=== PATIENT | male | born 1990 | race American Indian/Alaskan Native ===

== ENCOUNTER 2021-04-20 00:53 | Emergency (ER) | payer SELFPAY ==
[2021-04-20 02:18] VITALS: BP 121/64
--- NOTE | 2021-04-20 04:02 | Emergency Department Report ---
ED General Adult HPI - General Chief complaint: Medical Clearance Stated complaint: NEED MEDS Source: patient Mode of arrival: Ambulatory Limitations: No Limitations - History of Present Illness Initial comments: Patient is a 30-year-old -[place] male with a history of asthma and paranoid schizophrenia who presents to the ED for medication refill for his chronic schizophrenia which he states he only remains with 1 day supply. Patient states that he recently moved from [facility] and has not established care with a psychiatrist locally and is scheduled to be evaluated by one psychiatrist in 2 weeks but states that he would like to have a refill of his olanzapine medications for his chronic schizophrenia. Patient denies suicidal or homicidal ideation, hallucinations, chest pain or shortness of breath, nausea, vomiting, dizziness, syncope, fever, chills, headache or seizures. MD Complaint: Medication refill -: Sudden, days(s) (2) Location: head Radiation: non-radiation Severity scale (0 -10): 0 Improves with: none Worsens with: none Associated Symptoms: denies other symptoms. denies: confusion, chest pain, cough, diaphoresis, fever/chills, headaches, loss of appetite, malaise, nausea/vomiting, rash, seizure, shortness of breath, syncope, weakness Treatments Prior to Arrival: none - Related Data Previous Rx's Medication Instructions Recorded Last Taken Type OLANZapine [Olanzapine] 10 mg PO DAILY #30 tablet 04/20/21 Unknown Rx Allergies Allergy/AdvReac Type Severity Reaction Status Date / Time No Known Allergies Allergy Unverified 04/20/21 02:16 ED Review of Systems ROS: Stated complaint: NEED MEDS Other details as noted in HPI Constitutional: denies: chills, fever Eyes: denies: eye pain, eye discharge, vision change ENT: denies: ear pain, throat pain Respiratory: denies: cough, shortness of breath, wheezing Cardiovascular: denies: chest pain, palpitations Endocrine: no symptoms reported Gastrointestinal: denies: abdominal pain, nausea, diarrhea Genitourinary: denies: urgency, dysuria Musculoskeletal: denies: back pain, joint swelling, arthralgia Skin: denies: rash, lesions Neurological: denies: headache, weakness, paresthesias Psychiatric: anxiety. denies: depression, auditory hallucinations, visual hallucinations, homicidal thoughts, suicidal thoughts Hematological/Lymphatic: denies: easy bleeding, easy bruising ED Past Medical Hx - Past Medical History Previous Medical History?: Yes Hx Psychiatric Treatment: Yes (schizophrenia) Hx Asthma: Yes - Surgical History Past Surgical History?: No - Medications Home Medications: Home Medications Medication Instructions Recorded Confirmed Last Taken Type OLANZapine [Olanzapine] 10 mg PO DAILY #30 tablet 04/20/21 Unknown Rx ED Physical Exam - General Limitations: No Limitations General appearance: alert, in no apparent distress - Head Head exam: Present: atraumatic, normocephalic, normal inspection - Eye Eye exam: Present: normal appearance, PERRL, EOMI Pupils: Present: normal accommodation - ENT ENT exam: Present: normal exam, normal orophraynx, mucous membranes moist, TM's normal bilaterally, normal external ear exam - Neck Neck exam: Present: normal inspection, full ROM - Respiratory Respiratory exam: Present: normal lung sounds bilaterally. Absent: respiratory distress, wheezes, rales, rhonchi, chest wall tenderness, accessory muscle use - Cardiovascular Cardiovascular Exam: Present: normal rhythm, bradycardia, normal heart sounds. Absent: systolic murmur, diastolic murmur, rubs, gallop - GI/Abdominal GI/Abdominal exam: Present: soft, normal bowel sounds. Absent: tenderness, guarding, hyperactive bowel sounds, hypoactive bowel sounds, organomegaly - Extremities Exam Extremities exam: Present: normal inspection, full ROM, normal capillary refill - Back Exam Back exam: Present: normal inspection, full ROM. Absent: tenderness, CVA tenderness (R), CVA tenderness (L), muscle spasm, paraspinal tenderness - Neurological Exam Neurological exam: Present: alert, oriented X3, CN II-XII intact, normal gait, reflexes normal - Psychiatric Psychiatric exam: Present: normal affect, normal mood - Skin Skin exam: Present: warm, dry, intact, normal color. Absent: rash ED Course Vital Signs 04/20/21 02:16 Temperature 97.9 F Pulse Rate 57 L Respiratory 16 Rate Blood Pressure 121/64 O2 Sat by Pulse 99 Oximetry ED Medical Decision Making - Medical Decision Making This is a 30-year-old -[place] male with a history of asthma and paranoid schizophrenia who presents to the ED for medication refill for his chronic schizophrenia which he states he only remains with 1 day supply. Patient states that he recently moved from [facility] and has not established care with a psychiatrist locally and is scheduled to be evaluated by one psychiatrist in 2 weeks but states that he would like to have a refill of his olanzapine medications for his chronic schizophrenia. In the ED, patient is alert and oriented x3 and is not in any distress. Patient is hemodynamically stable. Patient is not suicidal or homicidal, not having active hallucinations at this time. Patient was therefore discharged home with a refill of his olanzapine 10 mg for chronic schizophrenia and was advised to ensure that he follows up with a new psychiatrist with whom he is scheduled for evaluation in 2 weeks. - Differential Diagnosis chronic schizophrenia; anxiety; Critical care attestation.: If time is entered above; I have spent that time in minutes in the direct care of this critically ill patient, excluding procedure time. ED Disposition Clinical Impression: Chronic schizophrenia, Medication refill Disposition: 01 HOME / SELF CARE / HOMELESS Is pt being admited?: No Does the pt Need Aspirin: No Condition: Stable Instructions: Schizophrenia, Managing Schizophrenia Additional Instructions: Follow-up with your psychiatrist as previously scheduled in 2 weeks. Take medications as advised, return to the ED immediately if your symptoms get worse. Prescriptions: OLANZapine [Olanzapine] 10 mg PO DAILY #30 tablet Referrals: [facility] [Outside] - 3-5 Days Time of Disposition: 04:03 Print Language: BAHAMIAN
== END 2021-04-20 04:32 | disposition home or self-care (01) ==
LOC: ED 00:53
DX: F20.9 Schizophrenia, unspecified (principal); Z76.0 Encounter for issue of repeat prescription; J45.909 Unspecified asthma, uncomplicated; Z98.890 Other specified postprocedural states; Z79.899 Other long term (current) drug therapy
CPT/HCPCS: 99281

== ENCOUNTER 2021-06-18 16:22 | Emergency (ER) | payer SELFPAY ==
[2021-06-18 16:52] VITALS: BP 126/73
--- NOTE | 2021-06-18 17:27 | Emergency Department Report ---
ED General Adult HPI - General Chief complaint: Abdominal Pain Stated complaint: STOMACH PAINS, VOMITING, STD Time Seen by Provider: 06/18/21 17:09 Source: patient Mode of arrival: Ambulatory Limitations: No Limitations - History of Present Illness Initial comments: 30-year-old -[place] male patient presents with complaints of intermittent cramping abdominal discomfort for the past 2 weeks. He denies any pain at current, however states he had some nausea and vomiting a little today prompting him to come to the ED. He denies any hematemesis/coffee-ground emesis, melena/hematochezia, history of abdominal surgeries, chest pain, shortness of breath, loss of taste or smell, or abdominal swelling. He states the pain is intermittent and feels cramping and like bloating. Pain usually occurs while at work after standing for an extended period of time per patient. Past medical history includes schizophrenia and asthma. He is not currently following with a PCP. Patient reports his main reason for visiting the ED today was to get tested for HIV. He denies any urinary symptoms or testicular/penile pain/swelling/lesions - Related Data Previous Rx's Medication Instructions Recorded Last Taken Type OLANZapine [Olanzapine] 10 mg PO DAILY #30 tablet 04/20/21 Unknown Rx Dicyclomine [Bentyl] 20 mg PO QID PRN #30 tablet 06/18/21 Unknown Rx Famotidine [Pepcid] 20 mg PO BID 7 Days #14 tablet 06/18/21 Unknown Rx Ondansetron [Zofran Odt] 4 mg PO Q8HR PRN #15 tab.rapdis 06/18/21 Unknown Rx Allergies Allergy/AdvReac Type Severity Reaction Status Date / Time No Known Allergies Allergy Unverified 04/20/21 02:16 ED Review of Systems ROS: Stated complaint: STOMACH PAINS, VOMITING, STD Other details as noted in HPI Constitutional: denies: chills, diaphoresis, fever, malaise, weakness Respiratory: denies: cough, shortness of breath Cardiovascular: denies: chest pain Gastrointestinal: abdominal pain, nausea, vomiting. denies: diarrhea, constipation, hematemesis, melena, hematochezia Genitourinary: denies: urgency, dysuria, frequency, hematuria, discharge, testicular pain Musculoskeletal: denies: back pain Skin: denies: rash, lesions, change in color Hematological/Lymphatic: swollen glands ED Past Medical Hx - Past Medical History Previous Medical History?: Yes Hx Psychiatric Treatment: Yes (schizophrenia) Hx Asthma: Yes - Medications Home Medications: Home Medications Medication Instructions Recorded Confirmed Last Taken Type OLANZapine [Olanzapine] 10 mg PO DAILY #30 tablet 04/20/21 Unknown Rx Dicyclomine [Bentyl] 20 mg PO QID PRN #30 tablet 06/18/21 Unknown Rx Famotidine [Pepcid] 20 mg PO BID 7 Days #14 tablet 06/18/21 Unknown Rx Ondansetron [Zofran Odt] 4 mg PO Q8HR PRN #15 tab.rapdis 06/18/21 Unknown Rx ED Physical Exam - General Limitations: No Limitations General appearance: alert, in no apparent distress - Head Head exam: Present: atraumatic, normocephalic - Eye Eye exam: Present: normal appearance - Respiratory Respiratory exam: Present: normal lung sounds bilaterally. Absent: respiratory distress - Cardiovascular Cardiovascular Exam: Present: regular rate - GI/Abdominal GI/Abdominal exam: Present: soft, normal bowel sounds. Absent: distended, tenderness, guarding, rebound, rigid, organomegaly, mass - Neurological Exam Neurological exam: Present: alert, oriented X3 - Psychiatric Psychiatric exam: Present: normal affect, normal mood - Skin Skin exam: Present: warm, dry, intact, normal color. Absent: rash ED Course Vital Signs 06/18/21 06/18/21 16:49 16:52 Temperature 98.4 F Pulse Rate 64 Respiratory 16 Rate Blood Pressure 126/73 [Right] ED Medical Decision Making - Medical Decision Making 30-year-old -[place] male patient presents with complaints of intermittent cramping abdominal discomfort for the past 2 weeks. He denies any pain at current, however states he had some nausea and vomiting a little today prompting him to come to the ED. He denies any hematemesis/coffee-ground emesis, melena/hematochezia, history of abdominal surgeries, chest pain, shortness of breath, loss of taste or smell, or abdominal swelling. He states the pain is intermittent and feels cramping and like bloating. Pain usually occurs while at work after standing for an extended period of time per patient. Past medical history includes schizophrenia and asthma. He is not currently following with a PCP. Patient reports his main reason for visiting the ED today was to get tested for HIV. He denies any urinary symptoms or testicular/penile pain/swelling/lesions No tenderness of the abdomen on exam. Patient's vitals are normal. Will trial conservative treatment for now with Bentyl, Pepcid, and Zofran. Recommend patient follows up with PCP for further evaluation. Discussed in detail signs and symptoms that should prompt immediate return to the emergency department with patient who verbalizes understanding. Critical care attestation.: If time is entered above; I have spent that time in minutes in the direct care of this critically ill patient, excluding procedure time. ED Disposition Clinical Impression: Intermittent abdominal pain Disposition: HOME / SELF CARE / HOMELESS Is pt being admited?: No Condition: Stable Instructions: Abdominal Pain, Adult Prescriptions: Dicyclomine [Bentyl] 20 mg PO QID PRN #30 tablet PRN Reason: abdominal cramping Famotidine [Pepcid] 20 mg PO BID 7 Days #14 tablet Ondansetron [Zofran Odt] 4 mg PO Q8HR PRN #15 tab.rapdis PRN Reason: Nausea Referrals: [facility] [Provider Group] - 3-5 Days Forms: Work/School Release Form(ED)
== END 2021-06-18 18:20 | disposition home or self-care (01) ==
LOC: ED 16:22
DX: R10.9 Unspecified abdominal pain (principal); F20.9 Schizophrenia, unspecified; J45.909 Unspecified asthma, uncomplicated
CPT/HCPCS: 99281

== ENCOUNTER 2021-07-04 00:34 | Emergency (ER) | payer SELFPAY ==
[2021-07-04 01:53] VITALS: BP 126/91
[2021-07-04 02:14] LABS: Basophils % (Auto) 0.6 % (0.0-1.8); Eosinophils # (Auto) 0.1 K/mm3 (0.0-0.4); Eosinophils % (Auto) 1.3 % (0.0-4.3); Hematocrit 40.8 % (35.5-45.6); Hemoglobin 13.4 gm/dl (11.8-15.2); Lymphocytes % (Auto) 34.5 % (13.4-35.0); Mean Corpuscular HGB Conc 33 % (32-34); Mean Corpuscular Volume 85 fl (84-94); Monocytes # (Auto) 0.5 K/mm3 (0.0-0.8); Monocytes % (Auto) 8.8 % (0.0-7.3); Platelet Count 224 K/mm3 (140-440); Red Blood Count 4.81 M/mm3 (3.65-5.03); Red Cell Distribution Width 13.9 % (13.2-15.2)
[2021-07-04 02:31] LABS: BUN/Creatinine Ratio 13; Blood Urea Nitrogen 12 mg/dL (9-20); Calcium 9.5 mg/dL (8.4-10.2); Hemolysis Index 6
--- NOTE | 2021-07-04 02:44 | Emergency Department Report ---
ED General Adult HPI - General Chief complaint: Abdominal Pain Stated complaint: ABDOMINAL PAIN Time Seen by Provider: 07/04/21 02:33 Source: patient Mode of arrival: Ambulatory Limitations: No Limitations - History of Present Illness Initial comments: Patient is 30 years old male with history of schizophrenia. Patient stated that he recently moved to this area. Patient presented to the ER complaining of diffuse abdominal pain has been going on for 3 weeks. Patient stated that he is worried that he is having an STD male HIV and he wonders if he can be checked for that. Patient denied any fever or chills. He denied any nausea, vomiting or diarrhea. He denied any penile discharge. No rash. Patient also stated that he is out of his olanazipne and he wanted to see if he can get some medication until he see his psychiatric doctor. Patient currently denying any suicidal or homicidal ideation. No visual or auditory hallucination. - Related Data Previous Rx's Medication Instructions Recorded Last Taken Type OLANZapine [Olanzapine] 10 mg PO DAILY #30 tablet 04/20/21 Unknown Rx Dicyclomine [Bentyl] 20 mg PO QID PRN #30 tablet 06/18/21 Unknown Rx Famotidine [Pepcid] 20 mg PO BID 7 Days #14 tablet 06/18/21 Unknown Rx Ondansetron [Zofran Odt] 4 mg PO Q8HR PRN #15 tab.rapdis 06/18/21 Unknown Rx OLANZapine [Olanzapine] 10 mg PO DAILY #30 tablet 07/04/21 Unknown Rx Allergies Allergy/AdvReac Type Severity Reaction Status Date / Time No Known Allergies Allergy Unverified 04/20/21 02:16 ED Review of Systems ROS: Stated complaint: ABDOMINAL PAIN Other details as noted in HPI Comment: All other systems reviewed and negative Constitutional: denies: chills, fever Respiratory: denies: cough, shortness of breath, SOB with exertion Cardiovascular: denies: chest pain, palpitations Gastrointestinal: abdominal pain. denies: nausea, vomiting, diarrhea, constipation, hematemesis, hematochezia Musculoskeletal: denies: back pain Psychiatric: denies: anxiety, depression, auditory hallucinations, visual hallucinations, homicidal thoughts, suicidal thoughts ED Past Medical Hx - Past Medical History Hx Psychiatric Treatment: Yes (schizophrenia) Hx Asthma: Yes - Surgical History Past Surgical History?: No - Medications Home Medications: Home Medications Medication Instructions Recorded Confirmed Last Taken Type OLANZapine [Olanzapine] 10 mg PO DAILY #30 tablet 04/20/21 Unknown Rx Dicyclomine [Bentyl] 20 mg PO QID PRN #30 tablet 06/18/21 Unknown Rx Famotidine [Pepcid] 20 mg PO BID 7 Days #14 tablet 06/18/21 Unknown Rx Ondansetron [Zofran Odt] 4 mg PO Q8HR PRN #15 tab.rapdis 06/18/21 Unknown Rx OLANZapine [Olanzapine] 10 mg PO DAILY #30 tablet 07/04/21 Unknown Rx ED Physical Exam - General Limitations: No Limitations General appearance: alert, in no apparent distress - Head Head exam: Present: atraumatic, normocephalic, normal inspection - Eye Eye exam: Present: normal appearance, PERRL - ENT ENT exam: Present: normal exam, normal orophraynx, mucous membranes moist - Neck Neck exam: Present: normal inspection, full ROM. Absent: tenderness, meningismus - Respiratory Respiratory exam: Present: normal lung sounds bilaterally - Cardiovascular Cardiovascular Exam: Present: regular rate, normal rhythm, normal heart sounds - GI/Abdominal GI/Abdominal exam: Present: soft, normal bowel sounds. Absent: distended, tenderness, guarding, rebound, rigid, organomegaly, mass, bruit, pulsatile mass, hernia - Extremities Exam Extremities exam: Present: normal inspection, full ROM, normal capillary refill. Absent: tenderness - Back Exam Back exam: Present: normal inspection, full ROM. Absent: CVA tenderness (R), CVA tenderness (L) - Neurological Exam Neurological exam: Present: alert, oriented X3, CN II-XII intact - Psychiatric Psychiatric exam: Present: normal mood. Absent: homicidal ideation, suicidal ideation - Skin Skin exam: Present: warm, intact, normal color ED Course Vital Signs 07/04/21 01:46 Temperature 98.2 F Pulse Rate 76 Respiratory 18 Rate Blood Pressure 126/91 [Right] O2 Sat by Pulse 100 Oximetry ED Medical Decision Making - Lab Data Result diagrams: 07/04/21 01:58 07/04/21 01:58 - Medical Decision Making Patient is 30 years old male with history of schizophrenia. Patient stated that he recently moved to this area. Patient presented to the ER complaining of diffuse abdominal pain has been going on for 3 weeks. Patient stated that he is worried that he is having an STD male HIV and he wonders if he can be checked for that. Patient denied any fever or chills. He denied any nausea, vomiting or diarrhea. He denied any penile discharge. No rash. Patient also stated that he is out of his olanazipne and he wanted to see if he can get some medication until he see his psychiatric doctor. Patient currently denying any suicidal or homicidal ideation. No visual or auditory hallucination. Labs reviewed and is unremarkable. Patient advised to follow-up with [facility] or his primary care physician for STD check. Patient advised to return to the ER if he develop any new symptoms. Critical care attestation.: If time is entered above; I have spent that time in minutes in the direct care of this critically ill patient, excluding procedure time. ED Disposition Clinical Impression: Acute abdominal pain, Schizophrenia Disposition: 01 HOME / SELF CARE / HOMELESS Is pt being admited?: No Condition: Stable Instructions: Schizophrenia, Abdominal Pain, Adult, [id number] Additional Instructions: Please follow-up with your primary care physician for STD check. Prescriptions: OLANZapine [Olanzapine] 10 mg PO DAILY #30 tablet Referrals: [facility] [Provider Group] - 3-5 Days
[2021-07-04 04:04] LABS: Bilirubin,Urine NEG (Negative); Blood,Urine NEG (Negative); Color,Urine Straw (Yellow); Protein,Urine <15 mg/dL mg/dL (Negative); Urobilinogen,Urine < 2.0 mg/dL (<2.0); WBC,Urine < 1.0 /HPF (0.0-6.0)
== END 2021-07-04 04:58 | disposition home or self-care (01) ==
LOC: ED 00:34
DX: R10.9 Unspecified abdominal pain (principal); F20.9 Schizophrenia, unspecified; J45.909 Unspecified asthma, uncomplicated
CPT/HCPCS: 36415; 80048; 81001; 82150; 83690; 85025; 99283